=== PATIENT | male | born 1950 | race Two or more races ===

== ENCOUNTER 2018-05-08 19:08 | Inpatient (IN) | payer MEDICARE, MEDICAID ==
[~2018-05-08] VITALS: Ht 165.1 cm; Wt 95.7 kg
[2018-05-09 05:41] LABS: HEMATOCRIT. 22.8 % (42.0-52.0); HEMOGLOBIN. 7.4 g/dL (14.0-18.0); MEAN CORPUSCULAR HEMOGLOBIN 28.9 pg (28.0-32.0); MEAN CORPUSCULAR VOLUME 88.7 fL (80.0-94.0); MEAN PLATELET VOLUME 7.6 fl (7.4-10.4); PLATELET 244 x1000/uL (130-400); RED BLOOD CELL COUNT 2.57 mill/uL (4.7-6.1); RED CELL DISTRIBUTION WIDTH 14.9 % (11.6-14.6)
[2018-05-09 05:44] LABS: INR 1.1; PROTHROMBIN TIME 10.6 sec (9.1-11.1)
[2018-05-09 05:46] LABS: CHLORIDE 109 mEq/L (98-107)
[2018-05-09 06:09] LABS: CLARITY URINE CLEAR (CLEAR); COLOR URINE YELLOW (YELLOW); KETONES URINE NEGATIVE (NEGATIVE); LEUKOCYTE ESTERASE URINE 1+ (NEGATIVE); NITRITE URINE NEGATIVE (NEGATIVE); OCCULT BLOOD URINE TRACE (NEGATIVE); PH URINE 8.5 (4.5-8.0); PROTEIN URINE 3+ (NEGATIVE); SPECIFIC GRAVITY URINE 1.011 (1.005-1.030); UROBILINOGEN URINE 0.2 E.U./dL (0.2-1.0)
[2018-05-09] MEDS ORDERED: FUROSEMIDE 100MG/10ML VIAL IV STA (06:29)
[2018-05-09] MEDS ORDERED: DEXTROSE 50% WATER 50ML SYRINGE IV ONE (06:30)
[2018-05-09] MEDS ORDERED: SODIUM BICARBONATE 8.4% 1 MEQ/ML 50ML SYR IV ONE ×2 (06:30→06:49)
[2018-05-09] MEDS ORDERED: SODIUM POLYSTYRENE SULFONATE 15 G/60 ML BOT PO ONE (06:30)
[2018-05-09] MEDS ORDERED: INSULIN REGULAR (HUMULIN R) 300UNITS/3ML IV ONE (06:30)
[2018-05-09] MEDS ORDERED: CALCIUM CHLORIDE 1GM/10ML SYR IV ONE (06:30)
[2018-05-09] MEDS ORDERED: ALBUTEROL (0.083%) 2.5MG/3ML NEB HHN ONE (06:30)
[2018-05-09 07:15] LABS: PLATELET ESTIMATE NORMAL
[2018-05-09] MEDS ORDERED: CLONIDINE 0.2MG TABLET PO ONE (09:45)
[2018-05-09 10:08] LABS: INR 1.1; PROTHROMBIN TIME 10.7 sec (9.1-11.1)
[2018-05-09] MEDS ORDERED: DOCUSATE SODIUM 100MG CAPSULE PO PRN (10:45)
[2018-05-09] MEDS ORDERED: GUAIFENESIN 200MG/10ML SUGAR FREE UDC PO PRN (10:45)
[2018-05-09] MEDS ORDERED: MAGNESIUM/ALUMINUM HYDROXIDE/SIMETHICONE 30ML UDC PO PRN (10:45)
[2018-05-09] MEDS ORDERED: NA PHOS,M-B/NA PHOS,DI-BA ENEMA 118ML PR PRN (10:45)
[2018-05-09] MEDS ORDERED: MORPHINE SULFATE 4 MG/ML CPJ (NOT FOR IM USE) IV PRN (10:45)
[2018-05-09] MEDS ORDERED: HYDROCODONE/ACETAMINOPHEN 10/325MG TABLET PO PRN (10:45)
[2018-05-09] MEDS ORDERED: IPRATROPIUM/ALBUTEROL 0.5-3(2.5)MG/3ML NEB INH PRN (10:45)
[2018-05-09] MEDS ORDERED: DIPHENHYDRAMINE 50MG/ML VIAL IV PRN (10:45)
[2018-05-09] MEDS ORDERED: SODIUM POLYSTYRENE SULFONATE 15 G/60 ML BOT PO NR ×3 (14:00→20:30)
[2018-05-09] MEDS ORDERED: NIFEDIPINE XL 60MG TAB PO SCH ×2 (14:30→22:30)
[2018-05-09] MEDS: ENOXAPARIN 40MG/0.4ML SYR SUBCUT SCH (17:30)
[2018-05-09] MEDS ORDERED: NIFEDIPINE XL 60MG TAB PO NR (19:00)
[2018-05-09] MEDS ORDERED: FUROSEMIDE 100MG/10ML VIAL IVP NR (20:00)
[2018-05-09 20:25] LABS: PHOSPHORUS 8.3 mg/dL (2.5-4.9)
[2018-05-09 22:00] VITALS: BP 193/69
[2018-05-09] MEDS: HYDRALAZINE HCL 25MG TABLET PO SCH (22:38)
[2018-05-09] MEDS ORDERED: CALCIUM GLUCONATE 100MG/ML 10ML VIAL IV NR (23:00)
[2018-05-09] MEDS ORDERED: EPOETIN ALFA 10000UNITS/ML VIAL SUBCUT NR (23:30)
[2018-05-09] MEDS ORDERED: CALCIUM GLUCONATE 1,000 MG in DEXT 5% WATER 100 ML IV SCH (23:45)
[2018-05-10] VITALS (8 sets, daily range): BP systolic 117–182; BP diastolic 52–65
[2018-05-10] MEDS: LORAZEPAM 2MG/ML CPJ IV PRN (01:16)
[2018-05-10] MEDS: HYDRALAZINE HCL 25MG TABLET PO SCH ×3 (05:27→21:41)
[2018-05-10 07:16] LABS: BASOPHILS % 1.2 % (0.0-2.0); EOSINOPHILS % 11.2 % (0.0-5.0); LYMPHOCYTES % 12.4 % (20.0-50.0); MEAN CORPUSCULAR VOLUME 87.9 fL (80.0-94.0); MEAN PLATELET VOLUME 7.9 fl (7.4-10.4); MONOCYTES % 7.6 % (2.0-8.0); NEUTROPHILS % 67.6 % (40.0-76.0); PLATELET 234 x1000/uL (130-400); RED CELL DISTRIBUTION WIDTH 14.5 % (11.6-14.6)
[2018-05-10 07:22] LABS: CHLORIDE 113 mEq/L (98-107)
[2018-05-10 07:32] LABS: T4 FREE 1.09 ng/dL (0.76-1.46)
[2018-05-10 07:35] LABS: LDL CHOLESTEROL 62 mg/dL (5-100)
[2018-05-10 07:56] LABS: HDL CHOLESTEROL 50 mg/dL (40-59); HEMATOCRIT. 20.2 % (42.0-52.0); HEMOGLOBIN. 6.7 g/dL (14.0-18.0)
[2018-05-10] MEDS: NIFEDIPINE XL 60MG TAB PO SCH (08:54)
[2018-05-10] MEDS: ASPIRIN 81MG EC TABLET PO SCH (08:54)
[2018-05-10] MEDS: SEVELAMER CARBONATE 800 MG TABLET PO SCH ×3 (08:55→17:59)
[2018-05-10] MEDS ORDERED: INFLUENZA VIRUS VACCINE(AFLURIA) 0.5ML SYR IM ONE (10:00)
[2018-05-10] MEDS: ENOXAPARIN 40MG/0.4ML SYR SUBCUT SCH (10:41)
[2018-05-10 17:18] LABS: HEMATOCRIT 24.5 % (42.0-52.0); HEMOGLOBIN 8.1 g/dL (14.0-18.0)
[2018-05-10] MEDS ORDERED: SEVELAMER CARBONATE 800 MG TABLET PO SCH (17:40)
[2018-05-11] VITALS: BP 130/80
[2018-05-11] MEDS: LORAZEPAM 2MG/ML CPJ IV PRN (00:44)
[2018-05-11 04:00] VITALS: BP 152/62
[2018-05-11] MEDS: HYDRALAZINE HCL 25MG TABLET PO SCH ×3 (05:28→21:25)
[2018-05-11 08:00] VITALS: BP 158/56
[2018-05-11] MEDS: SEVELAMER CARBONATE 800 MG TABLET PO SCH ×3 (08:47→17:07)
[2018-05-11] MEDS: NIFEDIPINE XL 60MG TAB PO SCH (08:47)
[2018-05-11] MEDS: ASPIRIN 81MG EC TABLET PO SCH (08:48)
[2018-05-11 12:00] VITALS: BP 149/54
[2018-05-11] MEDS: ENOXAPARIN 40MG/0.4ML SYR SUBCUT SCH (14:10)
[2018-05-11 16:00] VITALS: BP 159/52
[2018-05-11 20:00] VITALS: BP 148/58
[2018-05-11 21:42] LABS: BASOPHILS % 0.7 % (0.0-2.0); EOSINOPHILS % 10.2 % (0.0-5.0); HEMATOCRIT. 22.8 % (42.0-52.0); HEMOGLOBIN. 7.6 g/dL (14.0-18.0); LYMPHOCYTES % 16.4 % (20.0-50.0); MEAN CORPUSCULAR HEMOGLOBIN 29.3 pg (28.0-32.0); MEAN CORPUSCULAR VOLUME 87.8 fL (80.0-94.0); MEAN PLATELET VOLUME 8.3 fl (7.4-10.4); MONOCYTES % 10.1 % (2.0-8.0); NEUTROPHILS % 62.6 % (40.0-76.0); PLATELET 207 x1000/uL (130-400); RED CELL DISTRIBUTION WIDTH 14.3 % (11.6-14.6)
[2018-05-11 21:51] LABS: PHOSPHORUS 5.7 mg/dL (2.5-4.9)
[2018-05-11 22:01] LABS: HEPATITIS B SURFACE AB < 3.1 mIU/mL
[2018-05-11 22:12] LABS: HEPATITIS B SURFACE ANTIGEN NEGATIVE
[2018-05-11 22:42] LABS: HEPATITIS A AB IGM NEGATIVE (NEGATIVE)
[2018-05-12] VITALS: BP 139/66
[2018-05-12] MEDS: LORAZEPAM 2MG/ML CPJ IV PRN (00:43)
[2018-05-12 04:00] VITALS: BP 158/80
[2018-05-12] MEDS: HYDRALAZINE HCL 25MG TABLET PO SCH ×3 (05:24→21:50)
[2018-05-12 06:47] LABS: EOSINOPHILS % 10.9 % (0.0-5.0); HEMATOCRIT. 22.9 % (42.0-52.0); HEMOGLOBIN. 7.5 g/dL (14.0-18.0); LYMPHOCYTES % 20.2 % (20.0-50.0); MEAN CORPUSCULAR VOLUME 88.1 fL (80.0-94.0); MEAN PLATELET VOLUME 8.2 fl (7.4-10.4); MONOCYTES % 9.1 % (2.0-8.0); NEUTROPHILS % 58.8 % (40.0-76.0); PLATELET 209 x1000/uL (130-400); RED CELL DISTRIBUTION WIDTH 14.5 % (11.6-14.6)
[2018-05-12 08:00] VITALS: BP 176/75
[2018-05-12] MEDS: NIFEDIPINE XL 60MG TAB PO SCH (09:00)
[2018-05-12] MEDS: SEVELAMER CARBONATE 800 MG TABLET PO SCH ×3 (09:16→17:39)
[2018-05-12] MEDS: ASPIRIN 81MG EC TABLET PO SCH (09:16)
[2018-05-12 12:00] VITALS: BP 169/59
[2018-05-12] MEDS: ENOXAPARIN 40MG/0.4ML SYR SUBCUT SCH (13:09)
[2018-05-12 15:12] LABS: ANTI-MYELOPEROXIDASE AB < 9.0 U/mL (0.0-9.0); ANTI-PROTEINASE 3 ABS < 3.5 U/mL (0.0-3.5)
[2018-05-12 16:00] VITALS: BP_SYST 167; BP_SYST 169; BP_SYST 176; BP_DIAS 68; BP_DIAS 75; BP_DIAS 79
[2018-05-12] MEDS: CLONIDINE 0.1MG TABLET PO PRN (17:39)
[2018-05-12 20:00] VITALS: BP 169/52
[2018-05-13] VITALS (8 sets, daily range): BP systolic 116–175; BP diastolic 33–68
[2018-05-13] MEDS: CLONIDINE 0.1MG TABLET PO PRN (01:13)
[2018-05-13] MEDS: HYDRALAZINE HCL 25MG TABLET PO SCH ×3 (05:24→22:14)
[2018-05-13 06:42] LABS: BASOPHILS % 0.6 % (0.0-2.0); EOSINOPHILS % 6.4 % (0.0-5.0); HEMATOCRIT. 23.2 % (42.0-52.0); HEMOGLOBIN. 7.7 g/dL (14.0-18.0); LYMPHOCYTES % 13.1 % (20.0-50.0); MEAN CORPUSCULAR HEMOGLOBIN 29.1 pg (28.0-32.0); MEAN PLATELET VOLUME 8.1 fl (7.4-10.4); NEUTROPHILS % 70.9 % (40.0-76.0); PLATELET 174 x1000/uL (130-400); RED BLOOD CELL COUNT 2.63 mill/uL (4.7-6.1); RED CELL DISTRIBUTION WIDTH 14.7 % (11.6-14.6)
[2018-05-13] MEDS: SEVELAMER CARBONATE 800 MG TABLET PO SCH ×3 (08:23→19:26)
[2018-05-13] MEDS: ASPIRIN 81MG EC TABLET PO SCH (08:45)
[2018-05-13] MEDS: NIFEDIPINE XL 60MG TAB PO SCH (08:45)
[2018-05-13] MEDS: CLONIDINE 0.2MG TABLET PO SCH ×2 (13:48→22:15)
[2018-05-13] MEDS: ENOXAPARIN 40MG/0.4ML SYR SUBCUT SCH (14:39)
[2018-05-13] MEDS: ACETAMINOPHEN 325MG TABLET PO PRN (17:28)
[2018-05-14] VITALS (8 sets, daily range): BP systolic 120–154; BP diastolic 42–54
[2018-05-14] MEDS: HYDRALAZINE HCL 25MG TABLET PO SCH ×3 (05:24→21:39)
[2018-05-14] MEDS: CLONIDINE 0.2MG TABLET PO SCH ×3 (05:24→21:39)
[2018-05-14 06:55] LABS: BASOPHILS % 0.9 % (0.0-2.0); EOSINOPHILS % 11.7 % (0.0-5.0); HEMOGLOBIN. 7.2 g/dL (14.0-18.0); LYMPHOCYTES % 14.6 % (20.0-50.0); MEAN CORPUSCULAR VOLUME 88.3 fL (80.0-94.0); MEAN PLATELET VOLUME 8.2 fl (7.4-10.4); MONOCYTES % 9.5 % (2.0-8.0); NEUTROPHILS % 63.3 % (40.0-76.0); PLATELET 172 x1000/uL (130-400); RED BLOOD CELL COUNT 2.49 mill/uL (4.7-6.1); RED CELL DISTRIBUTION WIDTH 14.6 % (11.6-14.6)
[2018-05-14] MEDS: SEVELAMER CARBONATE 800 MG TABLET PO SCH ×3 (07:40→16:50)
[2018-05-14] MEDS: NIFEDIPINE XL 60MG TAB PO SCH (09:00)
[2018-05-14] MEDS: ASPIRIN 81MG EC TABLET PO SCH (09:00)
[2018-05-14 15:08] LABS: ATYPICAL P-ANCA <1:20 titer (Neg:<1:20); CYTOPLASMIC C-ANCA <1:20 titer (Neg:<1:20); PERINUCLEAR P-ANCA <1:20 titer (Neg:<1:20)
[2018-05-14] MEDS: ENOXAPARIN 40MG/0.4ML SYR SUBCUT SCH (15:08)
[2018-05-14] MEDS: ACETAMINOPHEN 325MG TABLET PO PRN (17:23)
[2018-05-14] MEDS ORDERED: EPOETIN ALFA 10000UNITS/ML VIAL SUBCUT SCH (21:00)
[2018-05-14] MEDS ORDERED: EPOETIN ALFA 10000UNITS/ML VIAL SUBCUT NR (21:00)
[2018-05-15] VITALS (9 sets, daily range): BP systolic 130–168; BP diastolic 37–58
[2018-05-15] MEDS: HYDRALAZINE HCL 25MG TABLET PO SCH (05:22)
[2018-05-15] MEDS: CLONIDINE 0.2MG TABLET PO SCH ×3 (05:23→22:00)
[2018-05-15 07:26] LABS: BASOPHILS % 0.8 % (0.0-2.0); EOSINOPHILS % 9.8 % (0.0-5.0); HEMATOCRIT. 24.6 % (42.0-52.0); HEMOGLOBIN. 8.1 g/dL (14.0-18.0); LYMPHOCYTES % 14.1 % (20.0-50.0); MEAN CORPUSCULAR HEMOGLOBIN 28.6 pg (28.0-32.0); MEAN CORPUSCULAR VOLUME 86.8 fL (80.0-94.0); MEAN PLATELET VOLUME 8.2 fl (7.4-10.4); MONOCYTES % 9.9 % (2.0-8.0); NEUTROPHILS % 65.4 % (40.0-76.0); PLATELET 187 x1000/uL (130-400); RED BLOOD CELL COUNT 2.83 mill/uL (4.7-6.1); RED CELL DISTRIBUTION WIDTH 14.9 % (11.6-14.6)
[2018-05-15] MEDS: SEVELAMER CARBONATE 800 MG TABLET PO SCH ×3 (07:40→17:00)
[2018-05-15] MEDS: NIFEDIPINE XL 60MG TAB PO SCH ×2 (08:46→20:33)
[2018-05-15] MEDS: ASPIRIN 81MG EC TABLET PO SCH (08:46)
[2018-05-15] MEDS: LOSARTAN POTASSIUM 25 MG TABLET PO SCH (12:33)
[2018-05-15] MEDS: ENOXAPARIN 40MG/0.4ML SYR SUBCUT SCH (14:00)
[2018-05-15] MEDS: HYDRALAZINE HCL 50MG TABLET PO SCH ×2 (15:00→22:02)
[2018-05-15] MEDS ORDERED: IOHEXOL-300 100 ML BOTTLE ONE (17:27)
[2018-05-16] VITALS: BP 133/56
[2018-05-16 04:00] VITALS: BP 127/51
[2018-05-16] MEDS: CLONIDINE 0.2MG TABLET PO SCH ×2 (05:39→13:18)
[2018-05-16] MEDS: HYDRALAZINE HCL 50MG TABLET PO SCH ×2 (05:39→13:18)
[2018-05-16 06:59] LABS: BASOPHILS % 0.8 % (0.0-2.0); EOSINOPHILS % 10.3 % (0.0-5.0); HEMATOCRIT. 28.1 % (42.0-52.0); HEMOGLOBIN. 9.2 g/dL (14.0-18.0); LYMPHOCYTES % 15.4 % (20.0-50.0); MEAN CORPUSCULAR HEMOGLOBIN 28.4 pg (28.0-32.0); MEAN CORPUSCULAR VOLUME 87.1 fL (80.0-94.0); MEAN PLATELET VOLUME 8.1 fl (7.4-10.4); MONOCYTES % 9.9 % (2.0-8.0); NEUTROPHILS % 63.6 % (40.0-76.0); PLATELET 230 x1000/uL (130-400); RED BLOOD CELL COUNT 3.23 mill/uL (4.7-6.1); RED CELL DISTRIBUTION WIDTH 15.6 % (11.6-14.6)
[2018-05-16 08:00] VITALS: BP 128/42
[2018-05-16] MEDS: SEVELAMER CARBONATE 800 MG TABLET PO SCH ×2 (08:52→13:18)
[2018-05-16] MEDS: LOSARTAN POTASSIUM 25 MG TABLET PO SCH (08:53)
[2018-05-16] MEDS: ASPIRIN 81MG EC TABLET PO SCH (08:53)
[2018-05-16] MEDS: NIFEDIPINE XL 60MG TAB PO SCH (08:53)
[2018-05-16] MEDS ORDERED: APIXABAN 5 MG TABLET PO SCH ×3 (10:30→17:00)
[2018-05-16 11:54] VITALS: BP 129/41
[2018-05-16 15:14] VITALS: BP 129/41
[2018-05-23] MEDS ORDERED: APIXABAN 5 MG TABLET PO SCH (09:00)
== END 2018-05-16 16:36 | disposition home or self-care (01) | DRG 291 ==
LOC: ER 19:08 → EDBEDREQ 05-09 08:29 → EDBEDREQTM 05-09 08:29 → EDBEDREQ 05-09 10:21 → 8WST 05-09 10:37 → ENRESERV 05-09 20:52 → 8WST 05-10 01:24
PROVIDERS: ADMIT Internal Medicine; ATTEND Internal Medicine
PROC: 5A1D70Z Performance of Urinary Filtration, Intermittent, Less than 6 Hours Per Day (ICD-10-PCS; 2018-05-09)
PROC: 30233N1 Transfusion of Nonautologous Red Blood Cells into Peripheral Vein, Percutaneous Approach (ICD-10-PCS; principal; 2018-05-10)
PROC: 5A1D70Z Performance of Urinary Filtration, Intermittent, Less than 6 Hours Per Day (ICD-10-PCS; 2018-05-10)
PROC: 5A1D70Z Performance of Urinary Filtration, Intermittent, Less than 6 Hours Per Day (ICD-10-PCS; 2018-05-11)
PROC: 5A1D70Z Performance of Urinary Filtration, Intermittent, Less than 6 Hours Per Day (ICD-10-PCS; 2018-05-12)
DX: I13.2 Hypertensive heart and chronic kidney disease with heart failure and with stage 5 chronic kidney disease, or end stage renal disease (principal); J96.00 Acute respiratory failure, unspecified whether with hypoxia or hypercapnia; N18.6 End stage renal disease; I50.43 Acute on chronic combined systolic (congestive) and diastolic (congestive) heart failure; E46 Unspecified protein-calorie malnutrition; E87.2 Acidosis; I82.C11 Acute embolism and thrombosis of right internal jugular vein; E87.70 Fluid overload, unspecified; E87.5 Hyperkalemia; D63.1 Anemia in chronic kidney disease; E03.9 Hypothyroidism, unspecified; E83.39 Other disorders of phosphorus metabolism; K60.2 Anal fissure, unspecified; N27.0 Small kidney, unilateral; N40.0 Benign prostatic hyperplasia without lower urinary tract symptoms; Z79.82 Long term (current) use of aspirin; Z99.2 Dependence on renal dialysis; Z86.718 Personal history of other venous thrombosis and embolism; Z68.35 Body mass index [BMI] 35.0-35.9, adult; Z88.8 Allergy status to other drugs, medicaments and biological substances
CPT/HCPCS: 36415; 70491; 71045; 71260; 74177; 76770; 80048; 80061; 82270; 82962; 83520; 83735; 83880; 84100; 84132; 84439; 84443; 84484; 85014; 85018; 85044; 86256; 86705; 86706; 86709; 86803; 86850; 86900; 86920; 87340; 90686; 93005; 93306; 93971; 96372; 96374; 96375; 97162; 99285; C1893; J0610; J0885; J1650; J1815; J1940; J2060; J3490; J7050; J7060; P9016; Q9967

== ENCOUNTER 2022-05-12 06:53 | Inpatient (IN) | payer MEDICARE, MEDICAID ==
[~2022-05-12] VITALS: Ht 167.6 cm; Wt 99.3 kg
[~2022-05-12 06:53] MED LIST: AMLO10TA80 PO; CLON-457 PO; DOCU100T PO; FERR210T PO; FINA1TAB18 MT; FURO20TA4 PO; METO100T16 PO; MULT-624 MT; SEVE800T8 MT; SODI1TAB66 PO; SODI454P4 PO; TAMS-11 PO
[2022-05-12] MEDS ORDERED: MORPHINE SULFATE 4 MG/ML CPJ (NOT FOR IM USE) IV STA ×2 (06:57→09:50)
[2022-05-12 08:27] LABS: HEMATOCRIT. 26.4 % (42.0-52.0); HEMOGLOBIN. 8.8 g/dL (14.0-18.0); MEAN CORPUSCULAR HEMOGLOBIN 31.3 pg (28.0-32.0); MEAN CORPUSCULAR VOLUME 93.8 fL (80.0-94.0); MEAN PLATELET VOLUME 7.8 fl (7.4-10.4); PLATELET 444 x1000/uL (130-400); RED BLOOD CELL COUNT 2.82 mill/uL (4.7-6.1); RED CELL DISTRIBUTION WIDTH 15.1 % (11.6-14.6)
[2022-05-12 09:09] LABS: CHLORIDE 90 mEq/L (98-107)
[2022-05-12 09:27] LABS: PLATELET ESTIMATE INCREASED
[2022-05-12] MEDS ORDERED: SODIUM CHLORIDE 0.9% 1,000 ML IV ONE (10:00)
[2022-05-12 12:00] VITALS: BP 181/45
[2022-05-12 14:00] VITALS: BP 181/45
[2022-05-12] MEDS ORDERED: IPRATROPIUM/ALBUTEROL 0.5-3(2.5)MG/3ML NEB NEB PRN (15:00)
[2022-05-12] MEDS ORDERED: MAGNESIUM/ALUMINUM HYDROXIDE/SIMETHICONE 30ML UDC PO PRN (15:00)
[2022-05-12] MEDS ORDERED: ZOLPIDEM TARTRATE 5MG TABLET PO PRN (15:00)
[2022-05-12] MEDS ORDERED: ACETAMINOPHEN 325MG TABLET PO PRN ×2 (15:00)
[2022-05-12] MEDS ORDERED: DOCUSATE SODIUM 100MG CAPSULE PO PRN (15:00)
[2022-05-12] MEDS ORDERED: NITROGLYCERIN 0.4MG TABLET SL SL PRN (15:00)
[2022-05-12] MEDS ORDERED: GUAIFENESIN 200MG/10ML SUGAR FREE UDC PO PRN (15:00)
[2022-05-12] MEDS ORDERED: ALBUTEROL (0.083%) 2.5MG/3ML NEB HHN PRN (15:30)
[2022-05-12] MEDS ORDERED: IPRATROPIUM BROMIDE (0.02%) 0.5MG/2.5ML NEB HHN PRN (15:30)
[2022-05-12] MEDS ORDERED: FINA5TAB11 MT (15:49)
[2022-05-12 16:00] VITALS: BP 168/64
[2022-05-12] MEDS: ENOXAPARIN 30MG/0.3ML SYR SUBCUT SCH (16:31)
[2022-05-12] MEDS: SEVELAMER CARBONATE 800 MG TABLET PO SCH (16:32)
[2022-05-12] MEDS: CLONIDINE 0.1MG TABLET PO PRN (16:32)
[2022-05-12] MEDS ORDERED: NALOXONE HCL 0.4MG/ML VIAL IV PRN (17:00)
[2022-05-12 20:00] VITALS: BP 155/64
[2022-05-12] MEDS: FAMOTIDINE 20MG TABLET PO SCH (21:15)
[2022-05-12] MEDS: METOPROLOL TARTRATE 25MG TABLET PO SCH (21:23)
[2022-05-12] MEDS: HYDRALAZINE HCL 50MG TABLET PO SCH (21:27)
[2022-05-12] MEDS: TRAMADOL 50MG TABLET PO PRN (21:28)
[2022-05-12 21:56] LABS: HEPATITIS B SURFACE ANTIGEN NEGATIVE
[2022-05-13] VITALS (14 sets, daily range): BP systolic 125–164; BP diastolic 34–72
[2022-05-13 00:50] LABS: CREATINE KINASE 23 IU/L (39-308); CREATINE KINASE MB FRACTION < 1.0 ng/mL (0.5-3.6)
[2022-05-13] MEDS: HYDRALAZINE HCL 50MG TABLET PO SCH ×3 (05:36→20:54)
[2022-05-13 07:05] LABS: BASOPHILS % 0.4 % (0.0-2.0); EOSINOPHILS % 1.7 % (0.0-5.0); HEMATOCRIT. 23.6 % (42.0-52.0); HEMOGLOBIN. 8.1 g/dL (14.0-18.0); LYMPHOCYTES % 9.5 % (20.0-50.0); MEAN CORPUSCULAR VOLUME 92.9 fL (80.0-94.0); MEAN PLATELET VOLUME 7.4 fl (7.4-10.4); MONOCYTES % 7.3 % (2.0-8.0); NEUTROPHILS % 81.1 % (40.0-76.0); PLATELET 455 x1000/uL (130-400); RED BLOOD CELL COUNT 2.54 mill/uL (4.7-6.1); RED CELL DISTRIBUTION WIDTH 14.9 % (11.6-14.6)
[2022-05-13 07:25] LABS: CHLORIDE 90 mEq/L (98-107); CREATINE KINASE 23 IU/L (39-308); CREATINE KINASE MB FRACTION < 1.0 ng/mL (0.5-3.6); PHOSPHORUS 6.6 mg/dL (2.5-4.9)
[2022-05-13] MEDS ORDERED: ASPIRIN 325MG EC TABLET PO SCH (09:00)
[2022-05-13] MEDS: AMLODIPINE 10MG TABLET PO SCH (09:00)
[2022-05-13] MEDS: SEVELAMER CARBONATE 800 MG TABLET PO SCH ×3 (09:08→17:41)
[2022-05-13] MEDS: METOPROLOL TARTRATE 25MG TABLET PO SCH (09:09)
[2022-05-13] MEDS: CLONIDINE 0.1MG TABLET PO PRN (09:31)
[2022-05-13] MEDS ORDERED: CARVEDILOL 12.5MG TABLET PO SCH (13:30)
[2022-05-13] MEDS: PIPERACILLIN/TAZOBACTAM 3.375 G in DEXTROSE 5% WATER 50 ML IV SCH ×2 (14:57→20:54)
[2022-05-13] MEDS: CARVEDILOL 12.5MG TABLET PO SCH ×2 (14:57→22:38)
[2022-05-13 15:11] LABS: HEPATITIS B SURFACE ANTIGEN NEGATIVE
[2022-05-13] MEDS ORDERED: VANCOMYCIN 1.25GM PMX (XELLIA) 250 ML IV NR (16:00)
[2022-05-13] MEDS: ENOXAPARIN 30MG/0.3ML SYR SUBCUT SCH (17:42)
[2022-05-13] MEDS: FAMOTIDINE 20MG TABLET PO SCH (20:54)
[2022-05-14] VITALS: BP 122/62
[2022-05-14 04:00] VITALS: BP 149/49
[2022-05-14] MEDS: HYDRALAZINE HCL 50MG TABLET PO SCH ×3 (06:14→21:59)
[2022-05-14 08:29] VITALS: BP 144/54
[2022-05-14] MEDS: TRAMADOL 50MG TABLET PO PRN (09:07)
[2022-05-14] MEDS: AMLODIPINE 10MG TABLET PO SCH (09:07)
[2022-05-14] MEDS: ASPIRIN 81MG EC TABLET PO SCH (09:07)
[2022-05-14] MEDS: CARVEDILOL 12.5MG TABLET PO SCH ×2 (09:07→21:59)
[2022-05-14] MEDS: LIDOCAINE 5% PATCH TOP SCH (09:08)
[2022-05-14] MEDS: SEVELAMER CARBONATE 800 MG TABLET PO SCH ×3 (09:08→16:28)
[2022-05-14] MEDS: PIPERACILLIN/TAZOBACTAM 3.375 G in DEXTROSE 5% WATER 50 ML IV SCH ×2 (09:09→21:40)
[2022-05-14] MEDS: ONDANSETRON HCL 4MG/2ML INJ IV PRN (12:12)
[2022-05-14 12:30] VITALS: BP 194/94
[2022-05-14 16:15] VITALS: BP 118/54
[2022-05-14] MEDS: ENOXAPARIN 30MG/0.3ML SYR SUBCUT SCH (16:27)
[2022-05-14] MEDS ORDERED: VANCOMYCIN 750MG PREMIX 150 ML IV NR (18:00)
[2022-05-14 20:00] VITALS: BP 140/53
[2022-05-14] MEDS: FAMOTIDINE 20MG TABLET PO SCH (21:58)
[2022-05-15] VITALS (9 sets, daily range): BP systolic 118–195; BP diastolic 48–104
[2022-05-15] MEDS: HYDRALAZINE HCL 50MG TABLET PO SCH ×2 (05:28→13:16)
[2022-05-15] MEDS: SEVELAMER CARBONATE 800 MG TABLET PO SCH ×3 (07:35→16:22)
[2022-05-15] MEDS: LIDOCAINE 5% PATCH TOP SCH (09:23)
[2022-05-15] MEDS: PIPERACILLIN/TAZOBACTAM 3.375 G in DEXTROSE 5% WATER 50 ML IV SCH ×2 (09:24→21:52)
[2022-05-15] MEDS: ASPIRIN 81MG EC TABLET PO SCH (09:24)
[2022-05-15] MEDS: AMLODIPINE 10MG TABLET PO SCH (09:24)
[2022-05-15] MEDS: CARVEDILOL 12.5MG TABLET PO SCH ×2 (09:24→21:51)
[2022-05-15] MEDS: TRAMADOL 50MG TABLET PO PRN (09:36)
[2022-05-15] MEDS ORDERED: IOHEXOL-350 100 ML BOTTLE ONE (11:26)
[2022-05-15] MEDS: ENOXAPARIN 30MG/0.3ML SYR SUBCUT SCH (16:00)
[2022-05-15] MEDS: HYDRALAZINE HCL 100MG TABLET PO SCH (21:51)
[2022-05-15] MEDS: FAMOTIDINE 20MG TABLET PO SCH (21:51)
[2022-05-16] VITALS (8 sets, daily range): BP systolic 122–166; BP diastolic 49–77
[2022-05-16 06:19] LABS: HEMATOCRIT. 23.6 % (42.0-52.0); MEAN CORPUSCULAR HEMOGLOBIN 31.2 pg (28.0-32.0); MEAN CORPUSCULAR VOLUME 91.8 fL (80.0-94.0); MEAN PLATELET VOLUME 7.2 fl (7.4-10.4); PLATELET 425 x1000/uL (130-400); RED BLOOD CELL COUNT 2.57 mill/uL (4.7-6.1); RED CELL DISTRIBUTION WIDTH 14.9 % (11.6-14.6)
[2022-05-16] MEDS: SEVELAMER CARBONATE 800 MG TABLET PO SCH ×3 (07:08→17:36)
[2022-05-16] MEDS: HYDRALAZINE HCL 100MG TABLET PO SCH ×3 (07:09→21:01)
[2022-05-16] MEDS: CARVEDILOL 12.5MG TABLET PO SCH ×2 (09:00→21:01)
[2022-05-16] MEDS: AMLODIPINE 10MG TABLET PO SCH (09:00)
[2022-05-16] MEDS: ASPIRIN 81MG EC TABLET PO SCH (09:28)
[2022-05-16] MEDS: LIDOCAINE 5% PATCH TOP SCH (09:28)
[2022-05-16] MEDS: PIPERACILLIN/TAZOBACTAM 3.375 G in DEXTROSE 5% WATER 50 ML IV SCH ×2 (09:28→21:00)
[2022-05-16] MEDS: ONDANSETRON HCL 4MG/2ML INJ IV PRN (09:32)
[2022-05-16 15:28] LABS: PLATELET ESTIMATE SLIGHTLY INCREASED
[2022-05-16] MEDS: ENOXAPARIN 30MG/0.3ML SYR SUBCUT SCH (15:38)
[2022-05-16] MEDS: FAMOTIDINE 20MG TABLET PO SCH (21:01)
[2022-05-17] VITALS: BP 149/52
[2022-05-17 04:00] VITALS: BP 150/61
[2022-05-17] MEDS: HYDRALAZINE HCL 100MG TABLET PO SCH ×3 (05:17→20:41)
[2022-05-17 08:00] VITALS: BP 154/50
[2022-05-17] MEDS: SEVELAMER CARBONATE 800 MG TABLET PO SCH ×3 (09:03→17:30)
[2022-05-17] MEDS: ASPIRIN 81MG EC TABLET PO SCH (09:03)
[2022-05-17] MEDS: AMLODIPINE 10MG TABLET PO SCH (09:04)
[2022-05-17] MEDS: CARVEDILOL 12.5MG TABLET PO SCH ×2 (09:04→20:41)
[2022-05-17] MEDS: PIPERACILLIN/TAZOBACTAM 3.375 G in DEXTROSE 5% WATER 50 ML IV SCH ×2 (09:05→20:41)
[2022-05-17] MEDS: LIDOCAINE 5% PATCH TOP SCH (09:06)
[2022-05-17 11:48] VITALS: BP 135/54
[2022-05-17 16:00] VITALS: BP 143/54
[2022-05-17] MEDS: ENOXAPARIN 30MG/0.3ML SYR SUBCUT SCH (17:30)
[2022-05-17 20:00] VITALS: BP 122/49
[2022-05-17] MEDS: FAMOTIDINE 20MG TABLET PO SCH (20:41)
[2022-05-17] MEDS ORDERED: EPOETIN ALFA-EPBX 4,000 UNIT/ML VIAL SUBCUT NR (21:00)
[2022-05-18] VITALS (10 sets, daily range): BP systolic 115–169; BP diastolic 43–81
[2022-05-18] MEDS: HYDRALAZINE HCL 100MG TABLET PO SCH ×3 (05:45→22:45)
[2022-05-18 07:46] LABS: HEMATOCRIT. 22.7 % (42.0-52.0); HEMOGLOBIN. 7.7 g/dL (14.0-18.0); MEAN CORPUSCULAR HEMOGLOBIN 31.5 pg (28.0-32.0); MEAN CORPUSCULAR VOLUME 93.2 fL (80.0-94.0); MEAN PLATELET VOLUME 7.1 fl (7.4-10.4); PLATELET 396 x1000/uL (130-400); RED BLOOD CELL COUNT 2.44 mill/uL (4.7-6.1); RED CELL DISTRIBUTION WIDTH 15.7 % (11.6-14.6)
[2022-05-18] MEDS: PIPERACILLIN/TAZOBACTAM 3.375 G in DEXTROSE 5% WATER 50 ML IV SCH (08:43)
[2022-05-18] MEDS: SEVELAMER CARBONATE 800 MG TABLET PO SCH ×3 (08:43→17:22)
[2022-05-18] MEDS: CARVEDILOL 12.5MG TABLET PO SCH ×2 (08:44→20:43)
[2022-05-18] MEDS: AMLODIPINE 10MG TABLET PO SCH (08:44)
[2022-05-18] MEDS: ASPIRIN 81MG EC TABLET PO SCH (08:44)
[2022-05-18] MEDS: LIDOCAINE 5% PATCH TOP SCH (08:44)
[2022-05-18] MEDS ORDERED: SODIUM POLYSTYRENE SULFONATE 15 G/60 ML BOT PO NR (14:00)
[2022-05-18] MEDS: CEFAZOLIN 1000MG PREMIX 50 ML IV SCH (14:55)
[2022-05-18] MEDS: ENOXAPARIN 30MG/0.3ML SYR SUBCUT SCH (17:22)
[2022-05-18 18:22] LABS: PLATELET ESTIMATE NORMAL
[2022-05-18] MEDS: FAMOTIDINE 20MG TABLET PO SCH (20:42)
[2022-05-19] VITALS: BP 123/48
[2022-05-19 04:00] VITALS: BP 143/60
[2022-05-19] MEDS: SEVELAMER CARBONATE 800 MG TABLET PO SCH ×3 (06:25→18:16)
[2022-05-19] MEDS: HYDRALAZINE HCL 100MG TABLET PO SCH ×3 (06:26→21:37)
[2022-05-19 08:00] VITALS: BP 144/55
[2022-05-19] MEDS: ASPIRIN 81MG EC TABLET PO SCH (11:20)
[2022-05-19] MEDS: CARVEDILOL 12.5MG TABLET PO SCH ×2 (11:21→21:38)
[2022-05-19] MEDS: AMLODIPINE 10MG TABLET PO SCH (11:21)
[2022-05-19] MEDS: LIDOCAINE 5% PATCH TOP SCH (11:28)
[2022-05-19 12:00] VITALS: BP 154/45
[2022-05-19] MEDS: CEFAZOLIN 1000MG PREMIX 50 ML IV SCH (15:42)
[2022-05-19] MEDS: ENOXAPARIN 30MG/0.3ML SYR SUBCUT SCH (16:09)
[2022-05-19 20:00] VITALS: BP 155/69
[2022-05-19] MEDS: FAMOTIDINE 20MG TABLET PO SCH (21:38)
[2022-05-19] MEDS ORDERED: INSULIN LISPRO 100 UNITS/ML SUBCUT NR (22:00)
[2022-05-20] VITALS (17 sets, daily range): BP systolic 111–177; BP diastolic 60–100
[2022-05-20] MEDS: HYDRALAZINE HCL 100MG TABLET PO SCH ×3 (06:03→21:22)
[2022-05-20] MEDS: SEVELAMER CARBONATE 800 MG TABLET PO SCH ×3 (08:59→17:13)
[2022-05-20] MEDS: AMLODIPINE 10MG TABLET PO SCH (09:00)
[2022-05-20] MEDS: CARVEDILOL 12.5MG TABLET PO SCH ×2 (09:00→21:22)
[2022-05-20] MEDS: ASPIRIN 81MG EC TABLET PO SCH (09:00)
[2022-05-20] MEDS: LIDOCAINE 5% PATCH TOP SCH (09:02)
[2022-05-20] MEDS: CEFAZOLIN 1000MG PREMIX 50 ML IV SCH (15:21)
[2022-05-20] MEDS: CLONIDINE 0.1MG TABLET PO PRN (17:13)
[2022-05-20] MEDS: ENOXAPARIN 30MG/0.3ML SYR SUBCUT SCH ×2 (17:13→17:18)
[2022-05-20] MEDS: FAMOTIDINE 20MG TABLET PO SCH (21:22)
[2022-05-21] VITALS: BP 161/100
[2022-05-21] MEDS: CLONIDINE 0.1MG TABLET PO PRN ×2 (00:12→00:15)
[2022-05-21 04:00] VITALS: BP 161/61
[2022-05-21] MEDS: HYDRALAZINE HCL 100MG TABLET PO SCH ×2 (07:02→14:00)
[2022-05-21 08:00] VITALS: BP 130/52
[2022-05-21] MEDS: ASPIRIN 81MG EC TABLET PO SCH (08:59)
[2022-05-21] MEDS: SEVELAMER CARBONATE 800 MG TABLET PO SCH ×2 (08:59→13:38)
[2022-05-21] MEDS: LIDOCAINE 5% PATCH TOP SCH (09:00)
[2022-05-21] MEDS: AMLODIPINE 10MG TABLET PO SCH (10:11)
[2022-05-21] MEDS: CARVEDILOL 12.5MG TABLET PO SCH (10:11)
[2022-05-21 12:00] VITALS: BP 151/55
[2022-05-21] MEDS: CEFAZOLIN 1000MG PREMIX 50 ML IV SCH (14:00)
[2022-05-21 14:28] VITALS: BP 151/55
== END 2022-05-21 15:22 | DRG 871 ==
LOC: ER 06:53 → MICUSO 09:48 → EDBEDREQ 09:51 → EDBEDREQTM 09:51 → 7EST 13:35 → 6EST 05-19 15:27
PROVIDERS: ADMIT Internal Medicine; ATTEND Internal Medicine
PROC: 5A1D70Z Performance of Urinary Filtration, Intermittent, Less than 6 Hours Per Day (ICD-10-PCS; principal; 2022-05-13)
PROC: 5A1D70Z Performance of Urinary Filtration, Intermittent, Less than 6 Hours Per Day (ICD-10-PCS; 2022-05-16)
PROC: 5A1D70Z Performance of Urinary Filtration, Intermittent, Less than 6 Hours Per Day (ICD-10-PCS; 2022-05-18)
PROC: 5A1D70Z Performance of Urinary Filtration, Intermittent, Less than 6 Hours Per Day (ICD-10-PCS; 2022-05-20)
DX: A40.0 Sepsis due to streptococcus, group A (principal); E43 Unspecified severe protein-calorie malnutrition; N18.6 End stage renal disease; I50.33 Acute on chronic diastolic (congestive) heart failure; I13.2 Hypertensive heart and chronic kidney disease with heart failure and with stage 5 chronic kidney disease, or end stage renal disease; E87.1 Hypo-osmolality and hyponatremia; I16.1 Hypertensive emergency; I38 Endocarditis, valve unspecified; I45.10 Unspecified right bundle-branch block; D63.8 Anemia in other chronic diseases classified elsewhere; E78.00 Pure hypercholesterolemia, unspecified; E11.22 Type 2 diabetes mellitus with diabetic chronic kidney disease; B96.89 Other specified bacterial agents as the cause of diseases classified elsewhere; I35.0 Nonrheumatic aortic (valve) stenosis; M94.0 Chondrocostal junction syndrome [Tietze]; I16.0 Hypertensive urgency; N28.1 Cyst of kidney, acquired; Z68.35 Body mass index [BMI] 35.0-35.9, adult; Z99.2 Dependence on renal dialysis; Z88.8 Allergy status to other drugs, medicaments and biological substances
CPT/HCPCS: 36415; 71045; 71250; 75635; 76770; 80048; 80051; 80053; 80061; 80202; 82550; 82553; 83036; 83735; 83880; 84100; 84484; 85025; 86705; 86709; 86803; 87077; 87186; 87340; 90935; 93005; 93306; 93923; 93970; 97162; 97166; 99285; A9547; J0690; J0885; J1650; J2270; J2405; J2543; J3370; J7030; J7060; Q9967

== ENCOUNTER 2022-06-10 08:27 | Inpatient (IN) | payer MEDICARE, MEDICAID ==
[~2022-06-10] VITALS: Ht 193 cm; Wt 97.5 kg
[2022-06-10] VITALS (15 sets, daily range): BP systolic 142–164; BP diastolic 55–78
[~2022-06-10 08:27] MED LIST changes: -FINA1TAB18 MT; +FINA5TAB11 MT
[2022-06-10 09:19] LABS: BASOPHILS % 0.8 % (0.0-2.0); EOSINOPHILS % 0.3 % (0.0-5.0); HEMATOCRIT. 22.9 % (42.0-52.0); HEMOGLOBIN. 7.9 g/dL (14.0-18.0); LYMPHOCYTES % 7.1 % (20.0-50.0); MEAN CORPUSCULAR HEMOGLOBIN 31.9 pg (28.0-32.0); MEAN CORPUSCULAR VOLUME 92.5 fL (80.0-94.0); MEAN PLATELET VOLUME 8.1 fl (7.4-10.4); MONOCYTES % 5.5 % (2.0-8.0); NEUTROPHILS % 86.3 % (40.0-76.0); PLATELET 398 x1000/uL (130-400); RED BLOOD CELL COUNT 2.48 mill/uL (4.7-6.1); RED CELL DISTRIBUTION WIDTH 16.5 % (11.6-14.6)
[2022-06-10 10:09] LABS: CHLORIDE 95 mEq/L (98-107)
[2022-06-10] MEDS: DEXTROSE 50% WATER 50ML SYRINGE IV NR ×2 (10:34→10:43)
[2022-06-10] MEDS ORDERED: DEXTROSE 5% WATER 1,000 ML IV ONE (12:00)
[2022-06-10] MEDS ORDERED: DEXT 10% WATER 1,000 ML IV SCH (14:15)
[2022-06-10] MEDS ORDERED: DEXTROSE 50% WATER 50ML SYRINGE IV ONE ×3 (14:42→15:46)
[2022-06-10 15:52] LABS: HEPATITIS B SURFACE ANTIGEN NEGATIVE
[2022-06-10] MEDS ORDERED: DEXTROSE 10% WATER 1,000 ML IV ONE (17:15)
[2022-06-10] MEDS ORDERED: GUAIFENESIN 200MG/10ML SUGAR FREE UDC PO PRN (17:30)
[2022-06-10] MEDS ORDERED: DOCUSATE SODIUM 100MG CAPSULE PO PRN (17:30)
[2022-06-10] MEDS ORDERED: ONDANSETRON HCL 4MG/2ML INJ IV PRN (17:30)
[2022-06-10] MEDS ORDERED: ACETAMINOPHEN 325MG TABLET PO PRN (17:30)
[2022-06-10] MEDS ORDERED: IPRATROPIUM/ALBUTEROL 0.5-3(2.5)MG/3ML NEB HHN PRN (17:30)
[2022-06-10] MEDS ORDERED: VANCOMYCIN 1G PREMIX 200 ML IV SCH (18:00)
[2022-06-10] MEDS: DEXT 10% WATER 1,000 ML IV SCH (18:17)
[2022-06-10 18:58] LABS: CLARITY URINE CLEAR (CLEAR); COLOR URINE YELLOW (YELLOW); KETONES URINE NEGATIVE (NEGATIVE); LEUKOCYTE ESTERASE URINE TRACE (NEGATIVE); NITRITE URINE NEGATIVE (NEGATIVE); OCCULT BLOOD URINE NEGATIVE (NEGATIVE); PH URINE >=9.0 (4.5-8.0); PROTEIN URINE 3+ (NEGATIVE); SPECIFIC GRAVITY URINE 1.009 (1.005-1.030); UROBILINOGEN URINE 0.2 E.U./dL (0.2-1.0)
[2022-06-10 19:11] LABS: *AMPHETAMINES SCREEN URINE NEGATIVE (NEGATIVE); *BARBITURATES SCREEN URINE NEGATIVE (NEGATIVE); *BENZODIAZEPINES SCREEN URINE NEGATIVE (NEGATIVE); *COCAINE SCREEN URINE NEGATIVE (NEGATIVE); CANNABINOID URINE SCREEN NEGATIVE (NEGATIVE); METHADONE URINE SCREEN NEGATIVE (NEGATIVE); OPIATES URINE SCREEN NEGATIVE (NEGATIVE); PHENCYCLIDINE URINE SCREEN NEGATIVE (NEGATIVE)
[2022-06-10] MEDS ORDERED: VANCOMYCIN 1500MG in DEXTROSE 5% WATER 250ML IV SCH (20:00)
[2022-06-10] MEDS: DEXTROSE 50% WATER 50ML SYRINGE IV PRN ×3 (20:16→23:40)
[2022-06-10] MEDS: AMLODIPINE 10MG TABLET PO SCH (20:29)
[2022-06-10] MEDS ORDERED: BLOOD SUGAR DIAGNOSTIC STRIP TEST SCH (21:00)
[2022-06-10] MEDS ORDERED: INSULIN LISPRO 100 UNITS/ML SUBCUT SCH (21:00)
[2022-06-10] MEDS: PIPERACILLIN/TAZOBACTAM 3.375 G in DEXTROSE 5% WATER 50 ML IV SCH (21:53)
[2022-06-11] VITALS (16 sets, daily range): BP systolic 109–170; BP diastolic 52–83
[2022-06-11 00:20] LABS: HEMOGLOBIN 7.2 g/dL (14.0-18.0); MEAN CORPUSCULAR HEMOGLOBIN 32.5 pg (28.0-32.0); MEAN CORPUSCULAR VOLUME 91.7 fL (80.0-94.0); PLATELET 370 x1000/uL (130-400); RED BLOOD CELL COUNT 2.22 mill/uL (4.7-6.1); RED CELL DISTRIBUTION WIDTH 16.1 % (11.6-14.6)
[2022-06-11 00:25] LABS: HEMATOCRIT 20.3 % (42.0-52.0)
[2022-06-11] MEDS ORDERED: HYDROCORTISONE SOD SUCCINATE 100 MG/2 ML VIAL IV NR (01:45)
[2022-06-11] MEDS: CLONIDINE 0.1MG TABLET PO PRN (01:48)
[2022-06-11] MEDS: DEXTROSE 50% WATER 50ML SYRINGE IV PRN ×5 (01:55→22:23)
[2022-06-11] MEDS: DEXT 10% WATER 1,000 ML IV SCH ×2 (06:19→22:24)
[2022-06-11 07:31] LABS: MEAN CORPUSCULAR HEMOGLOBIN 31.7 pg (28.0-32.0); MEAN CORPUSCULAR VOLUME 91.1 fL (80.0-94.0); MEAN PLATELET VOLUME 7.7 fl (7.4-10.4); PLATELET 329 x1000/uL (130-400); RED BLOOD CELL COUNT 2.04 mill/uL (4.7-6.1); RED CELL DISTRIBUTION WIDTH 16.1 % (11.6-14.6)
[2022-06-11 07:51] LABS: HEMATOCRIT. 18.6 % (42.0-52.0); HEMOGLOBIN. 6.5 g/dL (14.0-18.0)
[2022-06-11] MEDS: BLOOD SUGAR DIAGNOSTIC STRIP TEST SCH ×6 (08:05→18:43)
[2022-06-11 08:13] LABS: CHLORIDE 88 mEq/L (98-107)
[2022-06-11] MEDS: MULTIVITAMINS,THER W-MINERALS TABLET PO SCH (08:19)
[2022-06-11] MEDS: PANTOPRAZOLE 40MG DR TABLET PO SCH (08:19)
[2022-06-11] MEDS: FERROUS SULFATE 325MG TABLET PO SCH (08:19)
[2022-06-11] MEDS: THIAMINE HCL 100MG TABLET PO SCH (08:20)
[2022-06-11] MEDS: FOLIC ACID 1MG TABLET PO SCH (08:20)
[2022-06-11] MEDS: TAMSULOSIN HCL 0.4MG SR CAPSULE PO SCH (08:20)
[2022-06-11] MEDS: FINASTERIDE 5MG TABLET PO SCH (08:20)
[2022-06-11] MEDS: AMLODIPINE 10MG TABLET PO SCH (08:21)
[2022-06-11 08:31] LABS: HDL CHOLESTEROL 75 mg/dL (40-59); LDL CHOLESTEROL 22 mg/dL (5-100); PHOSPHORUS 3.2 mg/dL (2.5-4.9); TOTAL IRON BINDING CAPACITY 152 ug/dL (250-450)
[2022-06-11] MEDS ORDERED: ENOXAPARIN 30MG/0.3ML SYR SUBCUT SCH (09:00)
[2022-06-11 10:34] LABS: PLATELET ESTIMATE NORMAL
[2022-06-11] MEDS: PIPERACILLIN/TAZOBACTAM 3.375 G in DEXTROSE 5% WATER 50 ML IV SCH ×2 (11:03→22:25)
[2022-06-11 12:19] LABS: FERRITIN 1352 ng/mL (22-322)
[2022-06-11 14:07] LABS: VITAMIN B12 SERUM 706 pg/mL (211-911)
[2022-06-11 18:14] LABS: HEMATOCRIT 21.5 % (42.0-52.0); HEMOGLOBIN 7.6 g/dL (14.0-18.0); MEAN CORPUSCULAR HEMOGLOBIN 31.4 pg (28.0-32.0); MEAN CORPUSCULAR VOLUME 89.1 fL (80.0-94.0); PLATELET 303 x1000/uL (130-400); RED BLOOD CELL COUNT 2.41 mill/uL (4.7-6.1); RED CELL DISTRIBUTION WIDTH 16.4 % (11.6-14.6)
[2022-06-11] MEDS ORDERED: VANCOMYCIN 500MG PREMIX 100 ML IV SCH (20:00)
[2022-06-12] VITALS (12 sets, daily range): BP systolic 131–179; BP diastolic 55–72
[2022-06-12] MEDS: CLONIDINE 0.1MG TABLET PO PRN ×2 (00:07→15:51)
[2022-06-12] MEDS: BLOOD SUGAR DIAGNOSTIC STRIP TEST SCH ×8 (00:09→17:00)
[2022-06-12 00:57] LABS: HEMATOCRIT 21.6 % (42.0-52.0); HEMOGLOBIN 7.7 g/dL (14.0-18.0); MEAN CORPUSCULAR HEMOGLOBIN 31.5 pg (28.0-32.0); MEAN CORPUSCULAR VOLUME 88.7 fL (80.0-94.0); PLATELET 307 x1000/uL (130-400); RED BLOOD CELL COUNT 2.44 mill/uL (4.7-6.1); RED CELL DISTRIBUTION WIDTH 16.6 % (11.6-14.6)
[2022-06-12 06:29] LABS: BASOPHILS % 0.9 % (0.0-2.0); HEMATOCRIT. 22.2 % (42.0-52.0); HEMOGLOBIN. 7.9 g/dL (14.0-18.0); LYMPHOCYTES % 20.4 % (20.0-50.0); MEAN CORPUSCULAR HEMOGLOBIN 31.2 pg (28.0-32.0); MEAN CORPUSCULAR VOLUME 88.2 fL (80.0-94.0); MEAN PLATELET VOLUME 7.5 fl (7.4-10.4); NEUTROPHILS % 63.7 % (40.0-76.0); PLATELET 304 x1000/uL (130-400); RED BLOOD CELL COUNT 2.52 mill/uL (4.7-6.1); RED CELL DISTRIBUTION WIDTH 16.8 % (11.6-14.6)
[2022-06-12 07:06] LABS: CHLORIDE 84 mEq/L (98-107)
[2022-06-12 07:25] LABS: PHOSPHORUS 3.1 mg/dL (2.5-4.9)
[2022-06-12] MEDS: AMLODIPINE 10MG TABLET PO SCH (08:17)
[2022-06-12] MEDS: FERROUS SULFATE 325MG TABLET PO SCH (08:18)
[2022-06-12] MEDS: PANTOPRAZOLE 40MG DR TABLET PO SCH (08:18)
[2022-06-12] MEDS: FOLIC ACID 1MG TABLET PO SCH (08:18)
[2022-06-12] MEDS: FINASTERIDE 5MG TABLET PO SCH (08:18)
[2022-06-12] MEDS: THIAMINE HCL 100MG TABLET PO SCH (08:18)
[2022-06-12] MEDS: TAMSULOSIN HCL 0.4MG SR CAPSULE PO SCH (08:18)
[2022-06-12] MEDS: MULTIVITAMINS,THER W-MINERALS TABLET PO SCH (08:18)
[2022-06-12] MEDS: PIPERACILLIN/TAZOBACTAM 3.375 G in DEXTROSE 5% WATER 50 ML IV SCH ×2 (08:19→21:42)
[2022-06-12] MEDS ORDERED: SODIUM CHLORIDE 23.4% 154 MEQ in DEXT 10% WATER 1,000 ML IV SCH (09:30)
[2022-06-12] MEDS: SODIUM CHLORIDE 0.9% 1,000 ML IV SCH (10:11)
[2022-06-12 12:50] LABS: HEMATOCRIT 23.4 % (42.0-52.0); HEMOGLOBIN 8.2 g/dL (14.0-18.0); MEAN CORPUSCULAR HEMOGLOBIN 31.4 pg (28.0-32.0); MEAN CORPUSCULAR VOLUME 89.2 fL (80.0-94.0); PLATELET 305 x1000/uL (130-400); RED BLOOD CELL COUNT 2.62 mill/uL (4.7-6.1); RED CELL DISTRIBUTION WIDTH 16.5 % (11.6-14.6)
[2022-06-12 18:22] LABS: HEMATOCRIT 23.2 % (42.0-52.0); HEMOGLOBIN 8.1 g/dL (14.0-18.0); MEAN CORPUSCULAR VOLUME 89.3 fL (80.0-94.0); PLATELET 299 x1000/uL (130-400); RED CELL DISTRIBUTION WIDTH 16.5 % (11.6-14.6)
[2022-06-13] VITALS (18 sets, daily range): BP systolic 140–185; BP diastolic 59–79
[2022-06-13] MEDS: BLOOD SUGAR DIAGNOSTIC STRIP TEST SCH ×9 (00:23→18:32)
[2022-06-13] MEDS: SODIUM CHLORIDE 0.9% 1,000 ML IV SCH (06:42)
[2022-06-13] MEDS: CLONIDINE 0.1MG TABLET PO PRN (06:45)
[2022-06-13 07:18] LABS: BASOPHILS % 1.2 % (0.0-2.0); EOSINOPHILS % 5.7 % (0.0-5.0); HEMATOCRIT. 21.8 % (42.0-52.0); HEMOGLOBIN. 7.7 g/dL (14.0-18.0); LYMPHOCYTES % 18.3 % (20.0-50.0); MEAN CORPUSCULAR HEMOGLOBIN 31.3 pg (28.0-32.0); MEAN CORPUSCULAR VOLUME 88.2 fL (80.0-94.0); MEAN PLATELET VOLUME 7.6 fl (7.4-10.4); MONOCYTES % 13.6 % (2.0-8.0); NEUTROPHILS % 61.2 % (40.0-76.0); PLATELET 284 x1000/uL (130-400); RED BLOOD CELL COUNT 2.47 mill/uL (4.7-6.1); RED CELL DISTRIBUTION WIDTH 16.2 % (11.6-14.6)
[2022-06-13 07:57] LABS: CHLORIDE 85 mEq/L (98-107)
[2022-06-13 08:18] LABS: PHOSPHORUS 3.7 mg/dL (2.5-4.9)
[2022-06-13] MEDS: AMLODIPINE 10MG TABLET PO SCH (09:00)
[2022-06-13] MEDS: FERROUS SULFATE 325MG TABLET PO SCH (09:25)
[2022-06-13] MEDS: FINASTERIDE 5MG TABLET PO SCH (09:25)
[2022-06-13] MEDS: THIAMINE HCL 100MG TABLET PO SCH (09:25)
[2022-06-13] MEDS: TAMSULOSIN HCL 0.4MG SR CAPSULE PO SCH (09:25)
[2022-06-13] MEDS: FOLIC ACID 1MG TABLET PO SCH (09:26)
[2022-06-13] MEDS: PANTOPRAZOLE 40MG DR TABLET PO SCH (09:26)
[2022-06-13] MEDS: PIPERACILLIN/TAZOBACTAM 3.375 G in DEXTROSE 5% WATER 50 ML IV SCH ×2 (14:07→21:42)
[2022-06-13] MEDS: MULTIVITAMINS,THER W-MINERALS TABLET PO SCH (14:07)
[2022-06-13] MEDS ORDERED: EPOETIN ALFA-EPBX 4,000 UNIT/ML VIAL SUBCUT NR (21:00)
[2022-06-14] VITALS (9 sets, daily range): BP systolic 118–169; BP diastolic 63–90
[2022-06-14] MEDS: BLOOD SUGAR DIAGNOSTIC STRIP TEST SCH ×7 (00:26→12:23)
[2022-06-14 06:58] LABS: HEMATOCRIT. 21.3 % (42.0-52.0); HEMOGLOBIN. 7.5 g/dL (14.0-18.0); MEAN CORPUSCULAR HEMOGLOBIN 31.6 pg (28.0-32.0); MEAN CORPUSCULAR VOLUME 89.2 fL (80.0-94.0); MEAN PLATELET VOLUME 7.6 fl (7.4-10.4); PLATELET 274 x1000/uL (130-400); RED BLOOD CELL COUNT 2.38 mill/uL (4.7-6.1); RED CELL DISTRIBUTION WIDTH 16.2 % (11.6-14.6)
[2022-06-14] MEDS: THIAMINE HCL 100MG TABLET PO SCH (08:04)
[2022-06-14] MEDS: MULTIVITAMINS,THER W-MINERALS TABLET PO SCH (08:05)
[2022-06-14] MEDS: AMLODIPINE 10MG TABLET PO SCH (08:05)
[2022-06-14] MEDS: PANTOPRAZOLE 40MG DR TABLET PO SCH (08:05)
[2022-06-14] MEDS: FINASTERIDE 5MG TABLET PO SCH (08:05)
[2022-06-14] MEDS: FERROUS SULFATE 325MG TABLET PO SCH (08:05)
[2022-06-14] MEDS: FOLIC ACID 1MG TABLET PO SCH (08:05)
[2022-06-14] MEDS: PIPERACILLIN/TAZOBACTAM 3.375 G in DEXTROSE 5% WATER 50 ML IV SCH (08:06)
[2022-06-14] MEDS: TAMSULOSIN HCL 0.4MG SR CAPSULE PO SCH (08:06)
[2022-06-14 08:16] LABS: CHLORIDE 89 mEq/L (98-107)
[2022-06-14 08:29] LABS: PHOSPHORUS 4.3 mg/dL (2.5-4.9)
[2022-06-14 12:35] LABS: PLATELET ESTIMATE NORMAL
[2022-06-14 13:06] LABS: C-PEPTIDE 34.7 ng/mL (1.1-4.4)
[2022-06-14] MEDS: CLONIDINE 0.1MG TABLET PO PRN (14:11)
[2022-06-14] MEDS ORDERED: CLONIDINE 0.2MG TABLET PO SCH (15:15)
[2022-06-14] MEDS ORDERED: LISI10TA26 PO (15:34)
[2022-06-14] MEDS ORDERED: LISINOPRIL 10MG TABLET PO SCH (16:00)
[2022-06-15 13:11] LABS: PRO INSULIN 47.9 pmol/L (0.0-10.0)
== END 2022-06-14 16:15 | disposition home or self-care (01) | DRG 637 ==
LOC: ER 08:27 → 7EST 11:56 → 5EST 21:07
PROVIDERS: ADMIT Internal Medicine; ATTEND Internal Medicine
PROC: 5A1D70Z Performance of Urinary Filtration, Intermittent, Less than 6 Hours Per Day (ICD-10-PCS; 2022-06-10)
PROC: 30233N1 Transfusion of Nonautologous Red Blood Cells into Peripheral Vein, Percutaneous Approach (ICD-10-PCS; principal; 2022-06-11)
PROC: 5A1D70Z Performance of Urinary Filtration, Intermittent, Less than 6 Hours Per Day (ICD-10-PCS; 2022-06-12)
DX: E11.649 Type 2 diabetes mellitus with hypoglycemia without coma (principal); G93.41 Metabolic encephalopathy; I13.2 Hypertensive heart and chronic kidney disease with heart failure and with stage 5 chronic kidney disease, or end stage renal disease; I50.32 Chronic diastolic (congestive) heart failure; N18.6 End stage renal disease; E11.22 Type 2 diabetes mellitus with diabetic chronic kidney disease; Z68.26 Body mass index [BMI] 26.0-26.9, adult; D63.8 Anemia in other chronic diseases classified elsewhere; I44.0 Atrioventricular block, first degree; E66.9 Obesity, unspecified; E78.5 Hyperlipidemia, unspecified; Z99.2 Dependence on renal dialysis; I35.0 Nonrheumatic aortic (valve) stenosis; N40.0 Benign prostatic hyperplasia without lower urinary tract symptoms; E11.51 Type 2 diabetes mellitus with diabetic peripheral angiopathy without gangrene; Z87.891 Personal history of nicotine dependence
CPT/HCPCS: 36415; 70490; 71045; 74178; 80048; 80053; 80061; 80202; 80305; 81003; 82010; 82533; 82607; 82728; 82746; 82962; 83036; 83525; 83540; 83550; 83735; 83880; 84100; 84206; 84439; 84443; 84484; 84681; 85025; 85027; 85044; 86337; 86705; 86709; 86803; 86850; 86900; 86920; 87340; 90935; 93005; 93306; 93970; 97162; 97166; 99285; A6261; J0885; J1720; J2543; J3370; J7030; J7060; J7070; J7131; P9016

== ENCOUNTER → 2022-10-26 | Day surgery (SDC) | payer MEDICARE, MEDICAID ==
[~2022-10-26] VITALS: Ht 167.6 cm; Wt 95.7 kg
[~2022-10-26] MED LIST changes: +FENTANYL CITRATE/PF 50MCG/ML 2ML VIAL ONE; +LIDOCAINE HCL 1% 10 MG/ML 10ML VIAL ONE; +LISI10TA26 PO; +SODIUM BICARBONATE 4% (2.4MEQ) 5ML VIAL IV ONE
[2022-10-26 10:36] VITALS: BP 165/79; PULSE 56; RESP 16
[2022-10-26 10:47] VITALS: BP 165/79; RESP 16
[2022-10-26 10:53] VITALS: BP 165/79; RESP 16
== END | disposition home or self-care (01) ==
LOC: RAD 09:35
PROVIDERS: ATTEND Urology
DX: N28.89 Other specified disorders of kidney and ureter (principal); Z79.899 Other long term (current) drug therapy; Z98.890 Other specified postprocedural states; Z82.49 Family history of ischemic heart disease and other diseases of the circulatory system; Z88.8 Allergy status to other drugs, medicaments and biological substances
CPT/HCPCS: 77012; J3490 ×2; Z7610 ×2; J3010

== ENCOUNTER 2024-10-05 19:05 | Emergency (ER) | payer MEDICARE, MEDICAID ==
[~2024-10-05] VITALS: Ht 180.3 cm; Wt 92.0 kg
[2024-10-05 19:05] VITALS: PULSE 61; RESP 20; O2SAT 92
[~2024-10-05 19:05] MED LIST changes: +AMIODARONE HCL 50MG/ML 3ML VIAL IV ONE; +CALCIUM CHLORIDE 1GM/10ML SYR IV ONE; -CLON-457 PO; -FENTANYL CITRATE/PF 50MCG/ML 2ML VIAL ONE; -FURO20TA4 PO; -LIDOCAINE HCL 1% 10 MG/ML 10ML VIAL ONE; -LISI10TA26 PO; -SODI454P4 PO; -SODIUM BICARBONATE 4% (2.4MEQ) 5ML VIAL IV ONE; -TAMS-11 PO; +TAMS-54 PO
[2024-10-05 19:14] VITALS: BP_DIAS 47; PULSE 132; RESP 20; O2SAT 100
[2024-10-05] MEDS ORDERED: VANCOMYCIN 1G PREMIX 200 ML IV ONE (19:15)
[2024-10-05 19:47] VITALS: BP_SYST 89
[2024-10-05 19:47] LABS: BASOPHILS % 0.7 % (0.0-2.0); EOSINOPHILS % 0.2 % (0.0-5.0); LYMPHOCYTES % 18.9 % (20.0-50.0); MEAN PLATELET VOLUME 9.5 fl (7.4-10.4); MONOCYTES % 2.1 % (2.0-8.0); NEUTROPHILS % 78.1 % (40.0-76.0); PLATELET 117 x1000/uL (130-400); RED BLOOD CELL COUNT 1.72 mill/uL (4.7-6.1); RED CELL DISTRIBUTION WIDTH 21.0 % (11.6-14.6)
[2024-10-05] MEDS: NOREPINEPHRINE 8MG/250ML PMX 250 ML IV SCH (19:47)
[2024-10-05] MEDS: PIPERACILLIN/TAZO 3.375G/50ML 50 ML IV ONE (19:47)
[2024-10-05] MEDS: SODIUM CHLORIDE 0.9% 1,000 ML IV ONE (19:48)
[2024-10-05 19:55] LABS: INR 1.3
[2024-10-05 19:59] LABS: HEMATOCRIT. 17.3 % (42.0-52.0); HEMOGLOBIN. 5.1 g/dL (14.0-18.0)
[2024-10-05 20:02] LABS: UREA NITROGEN BLOOD 18 mg/dL (9-23)
[2024-10-05 20:03] LABS: ETHANOL BLOOD < 10 mg/dL (<10)
[2024-10-05 20:04] LABS: ASPARTATE AMINOTRANSFERASE 121 IU/L (<34); BILIRUBIN DIRECT 0.3 mg/dL (<=3.0); BILIRUBIN TOTAL 0.6 mg/dL (0.1-1.0)
[2024-10-05 20:30] VITALS: TEMP 100.2
[2024-10-05 20:31] LABS: CREATININE 3.1 mg/dL (0.6-1.3); PROTEIN TOTAL 4.7 g/dL (6.0-8.3)
[2024-10-05 20:38] LABS: TROPONIN I HIGH SENSITIVITY 156 ng/L (3.0-53)
[2024-10-05] MEDS ORDERED: SODIUM CHLORIDE 0.9% (SEPSIS BOLUS) IV ONE (20:45)
== END 2024-10-05 23:58 ==
LOC: ER 19:05
DX: I46.9 Cardiac arrest, cause unspecified (principal); J96.01 Acute respiratory failure with hypoxia; I49.01 Ventricular fibrillation; D64.9 Anemia, unspecified; I12.0 Hypertensive chronic kidney disease with stage 5 chronic kidney disease or end stage renal disease; N18.6 End stage renal disease; Z99.2 Dependence on renal dialysis; Z79.899 Other long term (current) drug therapy
CPT/HCPCS: 92950; 93005; 94070; 96365; 80076; 80048; 80320; 82962; 83880; 83605; 83690; 83735; 85025; 85610; 85730; 86850; 86900; 86901; 87040; 87186; 84484; 87077; 36415; 84145; 31500; 94664; 36556; 99291; 99292; J0282; J0461; J3490 ×3; J2312; J2543; J7030; G0480